=== PATIENT | male | born 1970 | race Caucasian/White ===

== ENCOUNTER 2025-03-28 07:14 | Inpatient (IN) ==
[2025-03-28] MEDS: SODIUM CHLORIDE 0.9% 1,000 ML IV SCH ×3 (07:30→11:36)
[2025-03-28 07:57] LABS: Hematocrit (blood only) 38.8 % (42.0-52.0); Hemoglobin 12.5 g/dl (14.0-18.0); Immature Granulocytes # (auto) 0.03 K/uL (0.01-0.20); Immature Granulocytes % (auto) 0.3 %; Mean Corpuscular Hemoglobin 28.9 pg (25.0-34.0); Mean Corpuscular Volume 89.8 fL (80.0-100.0); Platelet Count 325 K/uL (130-400); RDW Standard Deviation 41.1 fL (36.4-46.3); Red Blood Count 4.32 M/uL (4.70-6.10); White Blood Count 10.36 K/ul (4.8-10.8)
[2025-03-28 08:19] LABS: Alanine Aminotransferase 11.0 U/L (7-52); Albumin Globulin Ratio 1.3 (0.9-2); Albumin Level 4.1 gm/dl (3.4-5.0); Alkaline Phosphatase 80.0 U/L (34-104); Anion Gap 10.0 (3-11); Bilirubin,Total 0.5 mg/dl (0.2-1.0); Blood Urea Nitrogen 21.0 mg/dl (6-23); Calcium 9.0 mg/dl (8.6-10.3); Carbon Dioxide 26.0 mmol/L (21-32); Chloride 101.0 mmol/L (98-107); Creatinine Clr Calc Pharmacy 34.8 ml/min; Globulin 3.2 gm/dl (2.5-4.0); Glucose 146.0 mg/dl (70-99(Fasting)); Potassium 3.6 mmol/L (3.5-5.1); Sodium 137.0 mmol/L (136-145); Total Protein 7.3 gm/dl (6.0-8.3)
[2025-03-28 08:23] LABS: INR 1.1 (0.9-1.1); Prothrombin Time 11.2 Seconds (9.0-12.0)
[2025-03-28 08:35] LABS: Thyroid Stimulating Hormone 0.909 uIu/ml (0.300-4.500)
--- NOTE | 2025-03-28 08:42 | Emergency Department Note ---
Impression & Plan MARINA (acute kidney injury), Elbow pain, right, Hypotension ED Provider Note ED Provider Note NAME: FLOR SHEETS AGE:54 SEX: Male : 1970 ARRIVES VIA: Private vehicle INFORMANT: Patient ED PROVIDER(s): Naima Ray DO CHIEF COMPLAINT: Right elbow pain HPI: This is a 54-year-old male presents emergency department complaining of right elbow pain. Patient states it started about a week and a half ago and has been fairly constant since that time. He denies any trauma or any change in activity. He can point to 1 spot where he states all the pain is. He states when he stands up the pain seems worse and he feels it into his right shoulder and his right neck. He denies any prior similar episodes. Patient states he does have tramadol that is prescribed for chronic low back pain and he has been using those every morning as well. He denies taking any Tylenol or coming NSAIDs. He denies any other topical agents. He denies any prior injury to the right shoulder or right elbow. He denies any accompanying chest pain, shortness of breath, nausea or vomiting. He states when he stands up and has increased pain he also feels slightly dizzy. He denies any syncopal events. Patient was noted to be hypotensive in triage and I was notified and asked to come evaluate him urgently once he was placed in the room. While seated in the bed patient denied any complaints or concerns. When asked about his blood pressure he states his blood pressure typically fluctuates wildly anywhere from the 70s systolic up to the 200s systolic. He states he does use metoprolol daily. PAST MEDICAL HISTORY:See Below PAST SURGICAL HISTORY:See Below FAMILY HISTORY:See Below SOCIAL HISTORY:See Below HOME MEDICATIONS:See Below ALLERGIES:See Below VITALS:See Below PHYSICAL EXAMINATION: GENERAL: alert, well appearing, well nourished, no distress, non-toxic EYE EXAM: normal conjunctiva, PERRL and EOM's grossly intact OROPHARYNX: no exudate, no erythema, lips, buccal mucosa, and tongue normal and mucous membranes are moist NECK: supple, no nuchal rigidity, no adenopathy, non-tender, no pain with palpation along the right paraspinal region of the neck, FROM LUNGS: Clear to auscultation. Normal chest wall mechanics, no w/r/r HEART: no murmurs, S1 normal and S2 normal ABDOMEN: abdomen soft, non-tender, normo-active bowel sounds, no masses, no rebound or guarding. BACK: Back is symmetrical on inspection and there is no deformity, no midline tenderness, no CVA tenderness. SKIN: no rashes, petechiae, orbruising UPPER EXTREMITIES: upper extremities are grossly normal. FROM, nml pulses b/l. Mild pain with palpation over the lateral condyle and into the forearm extensors on the right, no joint effusions, no evidence of trauma, no reproducible pain with palpation of the more proximal upper extremity, humeral head, AC joint, clavicle, or scapula; equal sensation bilaterally LOWER EXTREMITIES: No pitting edema. FROM, nml pulses b/l. NEURO EXAM: Normal sensorium, cranial nerves II-XII grossly intact, normal speech, no facial droop,nogross weakness of arms, no gross weakness of legs. Gross sensation intact. No ataxia. Vital Signs: reviewed and remarkable Differential Diagnosis: Fracture, contusion, tendinitis, cervical radiculopathy, pneumonia, mass, brachial plexitis, pleural effusion, upper extremity DVT, as well as others were considered MEDICAL DECISION MAKING: This is a 54-year-old male presents the Emergency Department complaining of right upper extremity pain for the last week and a half. Patient noted to be significantly hypertensive at triage and was brought back to a room emergently and I was asked to see him. Patient started on IV fluids urgently after labs are drawn and sent and IV established. He was monitored telemetry, EKG and x- rays performed at bedside and interpreted by me. Patient denied any symptoms while seated at rest however he took 2 L of IV fluids for his blood pressure to stabilize and remain in had a low normal level. In that interim lab results showed significant elevation of his creatinine compared to prior. We did attempt to track down outpatient labs from his PCP however this was unsuccessful. Patient sent for CT of the abdomen and pelvis to rule out other obstructive or infectious pathology. I did discuss results with the patient at bedside. I suspect the upper extremity and neck pain are likely related to a cervical radiculopathy in light of his other ongoing back issues. Given hypotension and MARINA, we discussed further inpatient evaluation and he was in agreement. Case discussed with the hospitalist team for additional evaluation and management. Consultation(s): 1113: Discussed with Dr. Rivera, [place] hospitalist, for additional evaluation and mgmt. ER Treatment Provided: See below 0840: Patient updated on results thus far. He states he has previously had problems with his kidneys but doesn't know why. He states his PCP did blood work 1 month ago and he was told it was "good". Diagnostics Interpreted By Me: -ECG: Normal sinus at 95, normal axis, normal intervals, no acute ST/T wave changes -Cardiac Monitoring: An order was placed for continuous cardiac monitoring. The monitor shows a rate of 70 with normal sinus rhythm. -Laboratory studies: As stated above and show below. -Imaging studies: X-ray Chest: A single view study of the chest was reviewed and was negative for cardiomegaly, focal infiltrate, effusion, pulmonary edema, or wide mediastinum. xr elbow: no fx/dislocation Triage Nursing Note Reviewed Prior/Outside Records Reviewed Past Med/Surg History Problem List (Updated 03/28/25 @ 11:28 by Naima Ray DO) Hypotension (Acute) MARINA (acute kidney injury) (Acute) Elbow pain, right (Acute) Urinary frequency Benign hypertension (Acute 07/15/12) Social History Smoking Status: Never smoker Hx Alcohol Use: No Hx Substance Use: No Preferred Language: Mosotho Communication Ability: Effective Flight Follower Required: No Beliefs That Will Affect Care: None Feels Safe at Home: Yes Safety Concerns: Feels Safe At This Time Assistive Devices: None Allergies Allergies Allergy/AdvReac Type Severity Reaction Status Date / Time No Known Allergies Allergy Unverified 05/27/19 14:48 Home Meds Home Medications Medication Instructions Recorded Confirmed amitriptyline 25 mg tablet 25 mg PO HS 02/26/21 03/28/25 buspirone 15 mg tablet 15 mg PO TID 02/26/21 03/28/25 cyclobenzaprine 10 mg tablet 10 mg PO DAILY PRN Muscle Spasm 02/26/21 03/28/25 ergocalciferol (vitamin D2) 1,250 1,250 mcg PO WK 02/26/21 03/28/25 mcg (50,000 unit) capsule escitalopram oxalate 20 mg tablet 20 mg PO DAILY 02/26/21 03/28/25 gabapentin 800 mg tablet 800 mg PO TID 02/26/21 03/28/25 hydroxyzine HCl 10 mg tablet 10 mg PO HS 02/26/21 03/28/25 lisinopril 20 mg tablet 20 mg PO DAILY 02/26/21 03/28/25 metoprolol tartrate 25 mg tablet 25 mg PO BID 02/26/21 03/28/25 tamsulosin 0.4 mg capsule 0.8 mg PO HS 02/26/21 03/28/25 atorvastatin 40 mg tablet 40 mg PO HS 03/28/25 03/28/25 omeprazole 40 mg capsule,delayed 40 mg PO DAILY 03/28/25 03/28/25 release tramadol 50 mg tablet 50 mg PO HS 03/28/25 03/28/25 Results & Data (ED) Vital Signs Vital Signs - 24 hr 03/28/25 07:16 03/28/25 07:30 03/28/25 07:37 Temperature 36.6 C Temperature Source Temporal Artery Scan Pulse Rate 110 H 102 H Pulse Rate from SpO2 Sensor Respiratory Rate 18 15 Respiratory Effort / Characteristics Non-Labored Spontaneous Respiratory Depth Normal Respiratory Pattern Regular Blood Pressure 89/59 L 73/60 L 85/56 L Blood Pressure Mean 69 62 58 Pulse Oximetry 96 Oxygen Delivery Method Room Air Sepsis Recent Fever Within 48 Hours No Sepsis New/Unexplained Change in Mental Status N/A Sepsis Action Taken by Nursing Adv Provider Notified 03/28/25 08:00 03/28/25 08:19 03/28/25 09:00 Temperature Temperature Source Pulse Rate 92 H 88 Pulse Rate from SpO2 Sensor Respiratory Rate 15 Respiratory Effort / Characteristics Respiratory Depth Respiratory Pattern Blood Pressure 80/53 L 120/71 Blood Pressure Mean 64 89 Pulse Oximetry Oxygen Delivery Method Room Air Sepsis Recent Fever Within 48 Hours Sepsis New/Unexplained Change in Mental Status Sepsis Action Taken by Nursing 03/28/25 09:00 03/28/25 09:18 03/28/25 09:38 Temperature Temperature Source Pulse Rate 99 H 81 79 Pulse Rate from SpO2 Sensor 97 H 80 82 Respiratory Rate 16 15 23 Respiratory Effort / Characteristics Respiratory Depth Respiratory Pattern Blood Pressure Blood Pressure Mean Pulse Oximetry 100 99 Oxygen Delivery Method Sepsis Recent Fever Within 48 Hours Sepsis New/Unexplained Change in Mental Status Sepsis Action Taken by Nursing 03/28/25 09:41 03/28/25 09:56 03/28/25 09:59 Temperature Temperature Source Pulse Rate 75 75 72 Pulse Rate from SpO2 Sensor 75 75 72 Respiratory Rate 16 15 17 Respiratory Effort / Characteristics Respiratory Depth Respiratory Pattern Blood Pressure Blood Pressure Mean Pulse Oximetry 96 95 97 Oxygen Delivery Method Room Air Sepsis Recent Fever Within 48 Hours Sepsis New/Unexplained Change in Mental Status Sepsis Action Taken by Nursing 03/28/25 10:01 03/28/25 10:11 03/28/25 10:23 Temperature Temperature Source Pulse Rate 77 76 Pulse Rate from SpO2 Sensor 77 75 Respiratory Rate 19 19 Respiratory Effort / Characteristics Respiratory Depth Respiratory Pattern Blood Pressure 100/63 Blood Pressure Mean 84 Pulse Oximetry 96 96 Oxygen Delivery Method Sepsis Recent Fever Within 48 Hours Sepsis New/Unexplained Change in Mental Status Sepsis Action Taken by Nursing 03/28/25 10:30 03/28/25 10:32 03/28/25 10:35 Temperature Temperature Source Pulse Rate 85 77 Pulse Rate from SpO2 Sensor 85 78 Respiratory Rate 20 17 Respiratory Effort / Characteristics Respiratory Depth Respiratory Pattern Blood Pressure 108/68 Blood Pressure Mean 83 Pulse Oximetry 98 97 Oxygen Delivery Method Sepsis Recent Fever Within 48 Hours Sepsis New/Unexplained Change in Mental Status Sepsis Action Taken by Nursing 03/28/25 11:30 03/28/25 11:30 03/28/25 11:32 Temperature Temperature Source Pulse Rate 73 Pulse Rate from SpO2 Sensor 74 Respiratory Rate 17 Respiratory Effort / Characteristics Respiratory Depth Respiratory Pattern Blood Pressure 127/73 127/73 Blood Pressure Mean 82 82 Pulse Oximetry 99 Oxygen Delivery Method Sepsis Recent Fever Within 48 Hours Sepsis New/Unexplained Change in Mental Status Sepsis Action Taken by Nursing Laboratory Data 03/28/25 07:29 03/28/25 07:29 Lab Results 03/28/25 03/28/25 Range/Units 07:29 11:25 WBC 10.36 (4.8-10.8) K/ul RBC 4.32 L (4.70-6.10) M/uL Hgb 12.5 L (14.0-18.0) g/dl Hct 38.8 L (42.0-52.0) % MCV 89.8 (80.0-100.0) fL MCH 28.9 (25.0-34.0) pg MCHC 32.2 (32.0-36.0) g/dL RDW Std Deviation 41.1 (36.4-46.3) fL RDW Coeff of Leida 12.4 (11.5-14.5) % Plt Count 325 (130-400) K/uL MPV 9.4 (9.4-12.4) fL Immature Gran % (Auto) 0.3 % Neut % (Auto) 81.7 % Lymph % (Auto) 10.3 % [place] % (Auto) 6.3 % Eos % (Auto) 0.8 % Baso % (Auto) 0.6 % Neut # (Auto) 8.47 H (1.40-6.50) K/uL Lymph # (Auto) 1.07 L (1.20-3.40) K/uL [place] # (Auto) 0.65 H (0.11-0.59) K/uL Eos # (Auto) 0.08 (0.00-0.50) K/uL Baso # (Auto) 0.06 (0.00-0.20) K/uL Immature Gran # (Auto) 0.03 (0.01-0.20) K/uL PT 11.2 (9.0-12.0) Seconds INR 1.1 (0.9-1.1) Sodium 137 (136-145) mmol/L Potassium 3.6 (3.5-5.1) mmol/L Chloride 101 (98-107) mmol/L Carbon Dioxide 26 (21-32) mmol/L Anion Gap 10 (3-11) BUN 21 (6-23) mg/dl Creatinine 2.48 H (0.6-1.4) mg/dl Est Cr Clr Drug Dosing 34.8 ml/min eGFR 29.89 BUN/Creatinine Ratio 8.5 L (10-20) Glucose 146 H (70-99(Fasting)) mg/dl Uric Acid 6.0 (2.6-7.2) mg/dl Calcium 9.0 (8.6-10.3) mg/dl Magnesium 1.7 (1.7-2.4) mg/dl Total Bilirubin 0.5 (0.2-1.0) mg/dl AST 18 (13-39) U/L ALT 11 (7-52) U/L Alkaline Phosphatase 80 (34-104) U/L Total Creatine Kinase 216 (30-223) U/L Troponin I High Sens 3.1 (0-20) pg/ml Total Protein 7.3 (6.0-8.3) gm/dl Albumin 4.1 (3.4-5.0) gm/dl Globulin 3.2 (2.5-4.0) gm/dl Albumin/Globulin Ratio 1.3 (0.9-2) Lipase 126 H (11-82) U/L TSH 0.909 (0.300-4.500) uIu/ml Urine Color Yellow Urine Appearance Clear (Clear) Urine pH 5.5 (4.5-7.5) Ur Specific [employer] 1.006 (1.000-1.030) Urine Protein Negative (Negative) Urine Glucose (UA) Negative (Negative) Urine Ketones Negative (Negative) Urine Blood Negative (Negative) Urine Nitrite Negative (Negative) Urine Bilirubin Negative (Negative) Urine Urobilinogen Negative (Negative) Ur Leukocyte Esterase Negative (Negative) Urine Comment Urine Opiates Screen Neg (Neg) Ur Methadone, Qual Neg (Neg) Urine Fentanyl Screen Neg (Neg) Urine Barbiturates Neg (Neg) Ur Phencyclidine (PCP) Neg (Neg) U Amphetamin/Meth Scrn Neg (Neg) MDMA (Ecstasy) Screen Neg (Neg) U Benzodiazepines Scrn Neg (Neg) Ur Cocaine Metabolite Neg (Neg) U Marijuana (THC) Screen Pos H (Neg) Administered Medications Lactated Ringer's (Lr) 1,000 mls @ 125 mls/hr IV .Q8H NGUYEN Stop: 03/31/25 14:12 Last Admin: 03/28/25 14:30 Dose: 125 mls/hr Documented By: magalys Discontinued Medications Sodium Chloride (Nss) 1,000 mls @ 999 mls/hr IV .Q1H1M NGUYEN Stop: 03/28/25 09:43 Last Infusion: 03/28/25 08:44 Dose: Infused Documented By: Admin: 03/28/25 07:30 Dose: 999 mls/hr Documented By: LEORA Sodium Chloride (Nss) 1,000 mls @ 200 mls/hr IV .Q5H NGUYEN Stop: 03/28/25 13:44 Last Infusion: 03/28/25 10:34 Dose: Infused Documented By: Admin: 03/28/25 08:46 Dose: 200 mls/hr Documented By: LEORA Sodium Chloride (Nss) 1,000 mls @ 125 mls/hr IV .Q8H NGUYEN Stop: 03/31/25 10:29 Last Infusion: 03/28/25 14:50 Dose: Infused Documented By: Infusion: 03/28/25 14:17 Dose: 0 mls/hr Documented By: [email or web address] Admin: 03/28/25 11:36 Dose: 125 mls/hr Documented By: LEORA Imaging Data Radiologist's Impression: Cervical Spine X-Ray 03/28/25 07:41 XR cervical spine 2 or 3V CLINICAL HISTORY: neck pain COMPARISON STUDY: None FINDINGS: The prevertebral soft tissues are normal. No fractures or subluxations are visualized. There are degenerative changes with anterior posterior osteophytes at the C5-C6 level. Degenerative changes less pronounced also present at the C7-T1 level. IMPRESSION: 1. No fractures or subluxations identified 2. Degenerative changes most pronounced at the C5-6 level with anterior and posterior osteophytes. ACT 112: Negative or not required by law. Electronically signed by: Kobe Wallis M.D. 03/28/2025 8:59 AM Chest X-Ray 03/28/25 07:41 XR chest 1V not portable CLINICAL HISTORY: hypotension right arm pain radiating into the neck. COMPARISON STUDY: No previous studies for comparison. FINDINGS: The cardiac and mediastinal contours are normal. There is no focal pulmonary consolidation. There is no failure. There are no pleural effusions. Overlying cardiac leads are evident. There is an old left-sided rib deformity. IMPRESSION: No active disease in the chest. ACT 112: Negative or not required by law. Electronically signed by: Kobe Wallis M.D. 03/28/2025 8:57 AM Elbow X-Ray 03/28/25 07:41 XR elbow RT min 3V routine HISTORY: 54 years-old Male pain at lateral epicondyle COMPARISON: None TECHNIQUE: 3 views of the right elbow FINDINGS: No acute fracture, dislocation or large joint effusion. Mild dorsal soft tissue swelling. Degenerative marginal spurring/enthesophyte of the lateral epicondyle. IMPRESSION: No acute fracture or dislocation. ACT 112: Negative or not required by law. The above report was generated using voice recognition software. It may contain grammatical, syntax or spelling errors. Electronically signed by: Cj Valenzuela M.D. 03/28/2025 9:05 AM Abdomen/Pelvis CT 03/28/25 08:[address] WITHOUT CONTRAST CT DOSE: 870.32 mGy.cm HISTORY: Acute kidney injury [place] TECHNIQUE: Multiaxial CT images of the abdomen and pelvis were performed without contrast. A dose lowering technique was utilized adhering to the principles of ALARA. COMPARISON STUDY: 02/26/2021 FINDINGS: Clear lung bases. No pneumatosis or pneumoperitoneum. Unremarkable unenhanced spleen, pancreas, gallbladder, adrenal glands and liver. Unremarkable kidneys without hydronephrosis. 1.3 cm cyst of the mid to inferior pole right kidney. Mild urinary bladder wall thickening with partial distention. Borderline enlarged prostate. Atherosclerosis of the aorta without aneurysm. No lymphadenopathy. No bowel obstruction or bowel wall thickening. Colonic diverticulosis without acute diverticulitis. Normal appendix. Degenerative and postoperative changes of the spine. Chronic right-sided L4 pars defect with grade 1 anterolisthesis at this interspace. There is at least moderate central canal stenosis and right foraminal narrowing at this level. Subcentimeter sclerotic foci of the pelvis and proximal femora suggestive of probable bone islands. IMPRESSION: 1. No acute intra-abdominal or intrapelvic abnormality. 2. Unremarkable kidneys without hydronephrosis. 3. Colonic diverticulosis without acute diverticulitis. ACT 112: Negative or not required by law. The above report was generated using voice recognition software. It may contain grammatical, syntax or spelling errors. Electronically signed by: Cj Valenzuela M.D. 03/28/2025 9:30 AM Discharge Plan Visit Data Chief Complaint: Elbow Injury/Pain Stated Complaint: RT ELBOW PAIN ED Provider: Naima Ray Discharge Problem: MARINA (acute kidney injury), Elbow pain, right, Hypotension Patient Disposition: Being Evaluated by Hospitalist Condition: Fair Discharge Instructions Interventions: ED Discharge Assessment Last Done: 03/28/25 14:13
--- NOTE | 2025-03-28 08:59 | XRay Report ---
XR chest 1V not portable CLINICAL HISTORY: hypotension right arm pain radiating into the neck. COMPARISON STUDY: No previous studies for comparison. FINDINGS: The cardiac and mediastinal contours are normal. There is no focal pulmonary consolidation. There is no failure. There are no pleural effusions. Overlying cardiac leads are evident. There is a n old left-sided rib deformity. IMPRESSION: No active disease in the chest. ACT 112: Negative or not required by law. Electronically signed by: Kobe Wallis M.D. 03/28/2025 8:57 AM
--- NOTE | 2025-03-28 09:00 | XRay Report ---
XR cervical spine 2 or 3V CLINICAL HISTORY: neck pain COMPARISON STUDY: None FINDINGS: The prevertebral soft tissues are normal. No fractures or subluxations are visualized. Ther e are degenerative changes with anterior posterior osteophytes at the C5-C6 level. Degenerative angel es less pronounced also present at the C7-T1 level. IMPRESSION: 1. No fractures or subluxations identified 2. Degenerative changes most pronounced at the C5-6 level with anterior and posterior osteophytes. ACT 112: Negative or not required by law. Electronically signed by: Kobe Wallis M.D. 03/28/2025 8:59 AM
--- NOTE | 2025-03-28 09:06 | XRay Report ---
XR elbow RT min 3V routine HISTORY: 54 years-old Male pain at lateral epicondyle COMPARISON: None TECHNIQUE: 3 views of the right elbow FINDINGS: No acute fracture, dislocation or large joint effusion. Mild dorsal soft tissue swelling. Degenerativ e marginal spurring/enthesophyte of the lateral epicondyle. IMPRESSION: No acute fracture or dislocation. ACT 112: Negative or not required by law. The above report was generated using voice recognition software. It may contain grammatical, syntax o r spelling errors. Electronically signed by: Cj Valenzuela M.D. 03/28/2025 9:05 AM
[2025-03-28 09:25] LABS: Lipase 126.0 U/L (11-82); Magnesium 1.7 mg/dl (1.7-2.4); Uric Acid 6.0 mg/dl (2.6-7.2)
--- NOTE | 2025-03-28 09:32 | CT Scan Report ---
ABDOMEN AND PELVIS CT WITHOUT CONTRAST CT DOSE: 870.32 mGy.cm HISTORY: Acute kidney injury [place] TECHNIQUE: Multiaxial CT images of the abdomen and pelvis were performed without contrast. A dose lo wering technique was utilized adhering to the principles of ALARA. COMPARISON STUDY: 02/26/2021 FINDINGS: Clear lung bases. No pneumatosis or pneumoperitoneum. Unremarkable unenhanced spleen, pancr eas, gallbladder, adrenal glands and liver. Unremarkable kidneys without hydronephrosis. 1.3 cm cyst of the mid to inferior pole right kidney. Mild urinary bladder wall thickening with partial distentio n. Borderline enlarged prostate. Atherosclerosis of the aorta without aneurysm. No lymphadenopathy. No bowel obstruction or bowel wall thickening. Colonic diverticulosis without acute diverticulitis. N ormal appendix. Degenerative and postoperative changes of the spine. Chronic right-sided L4 pars defe ct with grade 1 anterolisthesis at this interspace. There is at least moderate central canal stenosis and right foraminal narrowing at this level. Subcentimeter sclerotic foci of the pelvis and proximal femora suggestive of probable bone islands. IMPRESSION: 1. No acute intra-abdominal or intrapelvic abnormality. 2. Unremarkable kidneys without hydronephrosis. 3. Colonic diverticulosis without acute diverticulitis. ACT 112: Negative or not required by law. The above report was generated using voice recognition software. It may contain grammatical, syntax o r spelling errors. Electronically signed by: Cj Valenzuela M.D. 03/28/2025 9:30 AM
--- NOTE | 2025-03-28 10:40 | History & Physical Report ---
Date of Service March 28, 2025 Assessment & Plan (1) MARINA (acute kidney injury): (2) Hypotension: (3) Elbow pain, right: (4) Urinary frequency: (5) Benign hypertension: Plan Possible MARINA vs. CKD in setting of hypotension UA unremarkable No post obstructive cause on imaging Stop anti-hypertensives IV fluids overnight Repeat BMP in AM Right C5 radiculopathy pain MRI cervical spine to assess for severe stenosis given also some concern with his gait but main concern from patient is C5 distribution pain Normocytic anemia B12, folate, ferritin, Fe transferrin sats with AM labs BPH Continue tamsulosin HTN Possibly white coat hypertension and therefore over treated, holding metoprolol and lisinopril as above GERD Well controlled, switch omeprazole for pantoprazole per hospital formulary Bilateral leg pain Continue gabapentin, tramadol Depression Continue Lexapro, hydroxyzine, buspirone VTE Prophylaxis - low risk, encourage ambulation Disposition - admit to med/surg Admission and Anticipated Discharge Date Admission Date: March 28, 2025 History of Present Illness Chief Complaint: Neck pressure, lightheadedness Primary Care Provider: Rich Santoyo MD Chandan Pace is a 54 year old male who presents to the ER with initial elbow pain per ER provider although on discussion with me he reports coming to the ER for dizziness/lightheadedness with neck pain. He reports feeling well yesterday doing yard work, he woke up feeling fine but his symptoms started today when he got to work. 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 He notes eating and drinking normally. Did not take his medications today or yesterday as he forgot to take them. He describes the pain in his neck as more of a mild pressure in the back of both sides of his neck. He does not feels dehydrated. No fever, chills, urinary, respiratory or gastrointestinal symptoms. He reports having lower back surgery and takes gabapentin for ongoing radiculopathy pains. He has trouble sleeping due to these pains and also takes tramadol at night with amitriptyline, hydroxyzine and Flexeril. He uses omprazole for reflux which is well controlled. He has anxiety and depression controlled on Lexapro and Buspar that he takes regularly. He notes atorvastatin was recently increased due to high cholesterol but no other recent changes to his medications and his anti-hypertensives have not recently changed. Pain in his elbow is new and he currently still has this. Appears to originate in his shoulder and shoot down his arm. He has not had this pain previously. He is a non-smoker. No alcohol. Smokes a little marijuana - no nausea or vomiting associated with this. No illicit substances. Allergies Allergy/AdvReac Type Severity Reaction Status Date / Time No Known Allergies Allergy Unverified 05/27/19 14:48 Home Medications Medication Instructions Recorded Confirmed Type amitriptyline 25 mg tablet 25 mg PO HS 02/26/21 03/28/25 History buspirone 15 mg tablet 15 mg PO TID 02/26/21 03/28/25 History cyclobenzaprine 10 mg tablet 10 mg PO DAILY PRN Muscle Spasm 02/26/21 03/28/25 History ergocalciferol (vitamin D2) 1,250 1,250 mcg PO WK 02/26/21 03/28/25 History mcg (50,000 unit) capsule escitalopram oxalate 20 mg tablet 20 mg PO DAILY 02/26/21 03/28/25 History gabapentin 800 mg tablet 800 mg PO TID 02/26/21 03/28/25 History hydroxyzine HCl 10 mg tablet 10 mg PO HS 02/26/21 03/28/25 History lisinopril 20 mg tablet 20 mg PO DAILY 02/26/21 03/28/25 History metoprolol tartrate 25 mg tablet 25 mg PO BID 02/26/21 03/28/25 History tamsulosin 0.4 mg capsule 0.8 mg PO HS 02/26/21 03/28/25 History atorvastatin 40 mg tablet 40 mg PO HS 03/28/25 03/28/25 History omeprazole 40 mg capsule,delayed 40 mg PO DAILY 03/28/25 03/28/25 History release tramadol 50 mg tablet 50 mg PO HS 03/28/25 03/28/25 History Past Med/Surg History Problem List (Updated 03/28/25 @ 11:28 by Naima Ray DO) Hypotension (Acute) MARINA (acute kidney injury) (Acute) Elbow pain, right (Acute) Urinary frequency Benign hypertension (Acute 07/15/12) Social History Smoking Status: Never smoker Hx Alcohol Use: No Hx Substance Use: No Preferred Language: Serbian Communication Ability: Effective Personnel Security Assistant Required: No Beliefs That Will Affect Care: None Feels Safe at Home: Yes Safety Concerns: Feels Safe At This Time Assistive Devices: None Review of Systems Review of Systems: All systems reviewed & are unremarkable except as noted in HPI & below Physical Exam Constitutional: WD/WN, vitals as above Respiratory: normal respiratory effort, lungs clear to auscultation Cardiovascular: RRR, no murmur, no edema Gastrointestinal (Abdomen): normal bowel sounds, soft, nontender, no hepatosplenomegaly Musculoskeletal: no cyanosis or clubbing, extremities motor strength 5/5 Neurologic: moves all extremities and awake; no focal motor deficits and not confused Speech / Cognition: normal speech Motor/Sensory: + sensory deficit (right C5 distribution) Psychiatric: A+Ox3, euthymic affect Results & Data Results & Data Vital Signs (Past 12 Hours) Vital Signs Temp Pulse Resp BP Pulse Ox O2 Del Method 03/28/25 10:01 100/63 03/28/25 09:59 72 17 97 Room Air 03/28/25 09:56 75 15 95 03/28/25 09:41 75 16 96 03/28/25 09:38 79 23 03/28/25 09:18 81 15 99 03/28/25 09:00 99 H 16 100 03/28/25 09:00 120/71 03/28/25 08:19 88 03/28/25 08:00 92 H 15 80/53 L Room Air 03/28/25 07:37 102 H 15 85/56 L 03/28/25 07:30 73/60 L 03/28/25 07:16 36.6 C 110 H 18 89/59 L 96 Room Air Laboratory Results Abnormal lab results 03/28/25 Range/Units 07:29 RBC 4.32 L (4.70-6.10) M/uL Hgb 12.5 L (14.0-18.0) g/dl Hct 38.8 L (42.0-52.0) % Neut # (Auto) 8.47 H (1.40-6.50) K/uL Lymph # (Auto) 1.07 L (1.20-3.40) K/uL [place] # (Auto) 0.65 H (0.11-0.59) K/uL Creatinine 2.48 H (0.6-1.4) mg/dl BUN/Creatinine Ratio 8.5 L (10-20) Glucose 146 H (70-99(Fasting)) mg/dl Lipase 126 H (11-82) U/L Diagnostic Findings XR cervical spine 2 or 3V CLINICAL HISTORY: neck pain COMPARISON STUDY: None FINDINGS: The prevertebral soft tissues are normal. No fractures or subluxations are visualized. There are degenerative changes with anterior posterior osteophytes at the C5-C6 level. Degenerative changes less pronounced also present at the C7-T1 level. IMPRESSION: 1. No fractures or subluxations identified 2. Degenerative changes most pronounced at the C5-6 level with anterior and posterior osteophytes. XR elbow RT min 3V routine HISTORY: 54 years-old Male pain at lateral epicondyle COMPARISON: None TECHNIQUE: 3 views of the right elbow FINDINGS: No acute fracture, dislocation or large joint effusion. Mild dorsal soft tissue swelling. Degenerative marginal spurring/enthesophyte of the lateral epicondyle. IMPRESSION: No acute fracture or dislocation. XR chest 1V not portable CLINICAL HISTORY: hypotension right arm pain radiating into the neck. COMPARISON STUDY: No previous studies for comparison. FINDINGS: The cardiac and mediastinal contours are normal. There is no focal p ulmonary consolidation. There is no failure. There are no pleural effusions. Overlying cardiac leads are evident. There is an old left-sided rib deformity. IMPRESSION: No active disease in the chest. ABDOMEN AND PELVIS CT WITHOUT CONTRAST CT DOSE: 870.32 mGy.cm HISTORY: Acute kidney injury new mar[place] TECHNIQUE: Multiaxial CT images of the abdomen and pelvis were performed without contrast. A dose lowering technique was utilized adhering to the principles of ALARA. COMPARISON STUDY: 02/26/2021 FINDINGS: Clear lung bases. No pneumatosis or pneumoperitoneum. Unremarkable un enhanced spleen, pancreas, gallbladder, adrenal glands and liver. Unremarkable kidneys without hydronephrosis. 1.3 cm cyst of the mid to inferior pole right kidney. Mild urinary bladder wall thickening with partial distention. Borderline enlarged prostate. Atherosclerosis of the aorta without aneurysm. No lymphadenopathy. No bowel obstruction or bowel wall thickening. Colonic diverticulosis without acute diverticulitis. Normal appendix. Degenerative and postoperative changes of the spine. Chronic right-sided L4 pars defect with grade 1 anterolisthesis at this interspace. There is at least moderate central canal stenosis and right foraminal narrowing at this level. Subcentimeter sclerotic foci of the pelvis and proximal femora suggestive of probable bone islands. IMPRESSION: 1. No acute intra-abdominal or intrapelvic abnormality. 2. Unremarkable kidneys without hydronephrosis. 3. Colonic diverticulosis without acute diverticulitis. Medications Administered ER Medications Given: Normal saline 1000ml bolus Normal saline 1L @ 200ml/hr ECG Rate (beats per minute): 95 Rhythm: normal sinus Findings: no acute ischemic change Comparison ECG Date: no prior available Code Status & VTE Plan Code Status Full VTE Prophylaxis Plan VTE Prophylaxis will be ordered: No PG Care Time/CCT Total # of Minutes Spent Total Time Spent with Patient: Total time spent is greater than 50% in coordination of care (as documented) at patient's floor/unit and/or counseling patient: Coding Level of Care Code 94281 INT INP/OBS CARE 375MIN Diagnoses MARINA (acute kidney injury) N17.9 Hypotension I95.9 Elbow pain, right M25.521 Urinary frequency R35.0 Benign hypertension I10
[2025-03-28 11:19] LABS: Creatine Kinase 216.0 U/L (30-223)
[2025-03-28 12:02] LABS: Appearance Urine Clear (Clear); Glucose Urine UA Negative (Negative)
[2025-03-28 13:10] LABS: Amphetamines+Metham, Urine Neg (Neg); MDMA (Ecstacy), Urine Neg (Neg); Marijuana, Urine Pos (Neg)
[2025-03-28] MEDS: LACTATED RINGER'S 1,000 ML IV SCH (14:30)
[2025-03-28] MEDS: busPIRone 15 MG TAB PO STA (17:30)
[2025-03-28] MEDS: ESCITALOPRAM OXALATE 20 MG TAB PO STA (17:30)
[2025-03-28] MEDS: GABAPENTIN 800 MG TAB PO STA (17:30)
[2025-03-28] MEDS: CYCLOBENZAPRINE HCL 10 MG TAB PO PRN (18:34)
[2025-03-28] MEDS: ACETAMINOPHEN 325 MG TAB PO PRN (18:34)
--- NOTE | 2025-03-28 18:34 | Magnetic Resonance Report ---
Exam(s): MRI C SPINE EXAM: MR Cervical Spine Without Intravenous Contrast CLINICAL HISTORY: Reason for exam: right sided cervical radiculopathy with ataxia. OTHER: Other Notes: right side neck pain right arm numbness tingling no injury TECHNIQUE: Magnetic resonance images of the cervical spine without intravenous contrast in multiple planes. COMPARISON: No relevant prior studies available. FINDINGS: Vertebrae: Unremarkable. No acute fracture. Spinal cord: Unremarkable. Normal signal. Soft tissues: Unremarkable. DISCS/SPINAL CANAL/NEURAL FORAMINA: C2-C3: Unremarkable. No significant disc disease. No stenosis. C3-C4: C3-4 disc osteophyte. Mild canal stenosis. Severe left and moderate right foraminal stenosis. C4-C5: C4-5: No disc bulge. Severe foraminal stenosis on the left. Mild stenosis on the right. C5-C6: C5-6 disc osteophyte. Mild canal stenosis. Severe right and mild left foraminal stenosis. C6-C7: Unremarkable. No significant disc disease. No stenosis. C7-T1: C7-T1 no canal stenosis or disc bulge. Moderate bilateral foraminal stenosis. IMPRESSION: Degenerative spondylosis with scattered bilateral foraminal stenosis as described. Electronically signed by: Dario Lara MD 03/28/25 18:33 PM
[2025-03-28] MEDS: TAMSULOSIN HCL 0.4 MG CAP PO SCH (21:59)
[2025-03-28] MEDS: busPIRone 15 MG TAB PO SCH (21:59)
[2025-03-28] MEDS: GABAPENTIN 800 MG TAB PO SCH (21:59)
[2025-03-28] MEDS: ATORVASTATIN 40 MG TAB PO SCH (21:59)
[2025-03-28] MEDS: AMITRIPTYLINE HCL 25 MG TAB PO SCH (21:59)
--- NOTE | 2025-03-29 06:07 | Electrocardiogram Report ---
Test Reason : Blood Pressure : */* mmHG Vent. Rate : 95 BPM Atrial Rate : 95 BPM P-R Int : 142 ms QRS Dur : 78 ms QT Int : 338 ms P-R-T Axes : 53 33 34 degrees QTcB Int : 424 ms Normal sinus rhythm Possible Left atrial enlargement Borderline ECG No previous ECGs available Confirmed by Shemar Baig ([id number]) on 03/29/2025 6:07:10 AM Referred By: REFERRED SELF Confirmed By: Shemar Baig
[2025-03-29 07:31] LABS: Hematocrit (blood only) 35.1 % (42.0-52.0); Hemoglobin 11.4 g/dl (14.0-18.0); Mean Corpuscular Hemoglobin 29.2 pg (25.0-34.0); Mean Corpuscular Volume 89.8 fL (80.0-100.0); Platelet Count 215 K/uL (130-400); RDW Standard Deviation 40.8 fL (36.4-46.3); Red Blood Count 3.91 M/uL (4.70-6.10); White Blood Count 5.49 K/ul (4.8-10.8)
[2025-03-29 07:47] LABS: Anion Gap 5.0 (3-11); Blood Urea Nitrogen 15.0 mg/dl (6-23); Calcium 8.7 mg/dl (8.6-10.3); Carbon Dioxide 28.0 mmol/L (21-32); Chloride 108.0 mmol/L (98-107); Creatinine Clr Calc Pharmacy 59.8 ml/min; Glucose 135.0 mg/dl (70-99(Fasting)); Iron 56.0 mcg/dl (35-175); Potassium 4.1 mmol/L (3.5-5.1); Sodium 141.0 mmol/L (136-145); Total Iron Binding Cap Calc 340.0 mcg/dl (250-450); Transferrin 243.0 mg/dl (200-360); Transferrin (FE) Percent Satur 16.0 % (20-50)
[2025-03-29] MEDS: ESCITALOPRAM OXALATE 20 MG TAB PO SCH (07:51)
[2025-03-29 08:07] LABS: Ferritin 128.1 ng/ml (8-388)
[2025-03-29 08:14] LABS: Folate (Folic Acid),Ser orPlas 14.21 ng/ml (>5.38)
[2025-03-29 08:15] LABS: Vitamin B12 380.0 pg/ml (180-914)
--- NOTE | 2025-03-29 11:19 | Discharge Summary ---
Discharge Summary Date of Service March 29, 2025 Principal Dx & Hospital Course #1 = Principal Diagnosis (1) MARINA (acute kidney injury): (2) Hypotension: (3) Elbow pain, right: (4) Urinary frequency: (5) Benign hypertension: Plan Chandan Pace is a 54 year old male observed at [facility] due to lightheadedness, elbow pain and neck pressure. He was diagnosed with acute kidney injury and hypotension due to anti-hypertensives and dehydration. Post obstructive cause ruled out on This resolved overnight with intravenous fluids and holding his anti-hypertensives. His blood pressure has been stable overnight not orthostatic in the morning. He is medically stable for discharge. Due to right sided C6 distribution and neck pain he underwent MRI cervical spine that showed multiple areas of foraminal stenosis including severe foraminal stenosis of the exiting C6 nerve root on the right side as the likely cause of his pain. This resolved overnight with improvement in his blood pressure and no specific treatment required for this but recommend he follows up with his primary care provider. His gabapentin and amitriptyline should also help with this neuropathic pain which he will continue. He was also noticed to have mild anemia. Further workup for this revealed a mildly low iron levels and B12 level <400 therefore recommend supplementation for this as prescribed. Notes For Next Care Provider Recommend he follows up with his PCP with repeat BMP in 1-2 weeks. Creatinine improved from 2.48 on admission to 1.44. Urine analysis was reassuringly normal. Follow up with PCP for mild iron deficient anemia - make sure colon cancer screening up to date Medication Changes From Visit Hold metoprolol and lisinopril due to hypotension causing MARINA Start supplementation with B12 and iron Admission HPI Per Admitting Provider Chandan Pace is a 54 year old male who presents to the ER with initial elbow pain per ER provider although on discussion with me he reports coming to the ER for dizziness/lightheadedness with neck pain. He reports feeling well yesterday doing yard work, he woke up feeling fine but his symptoms started today when he got to work. 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 He notes eating and drinking normally. Did not take his medications today or yesterday as he forgot to take them. He describes the pain in his neck as more of a mild pressure in t he back of both sides of his neck. He does not feels dehydrated. No fever, chills, urinary, respiratory or gastrointestinal symptoms. He reports having lower back surgery and takes gabapentin for ongoing radiculopathy pains. He has trouble sleeping due to these pains and also takes tramadol at night with amitriptyline, hydroxyzine and Flexeril. He uses omprazole for reflux which is well controlled. He has anxiety and depression controlled on Lexapro and Buspar that he takes regularly. He notes atorvastatin was recently increased due to high cholesterol but no other recent changes to his medications and his anti-hypertensives have not recently changed. Pain in his elbow is new and he currently still has this. Appears to originate in his shoulder and shoot down his arm. He has not had this pain previously. He is a non-smoker. No alcohol. Smokes a little marijuana - no nausea or vomiting associated with this. No illicit substances. Discharge Exam Constitutional WD/WN, vitals as above Respiratory normal respiratory effort, lungs clear to auscultation Cardiovascular RRR, no murmur, no edema Discharge Plan Discharge Items Patient Disposition: Home - Self-Care Reason For Visit: MARINA, HYPOTENSION Discharge Diagnosis: Acute kidney injury - resolved on discharge Low blood pressure Right sided C6 cervical radiculopathy Condition on Discharge: Fair Activity: Resume your previous activity Non-emergency contact: Primary Care Provider Call non-emergency contact if: you have any medication questions and your sympt oms worsen Follow-up/Referrals: Rich Santoyo MD [Primary Care Provider] - 04/05/25 11:00 am Diet: Regular Addtl Attending Provider Instructions: You were observed at [facility] due to lightheadedness, elbow pain and neck pressure. You were diagnosed with acute kidney injury and low blood pressure due to anti-hypertensives. This resolved overnight with intravenous fluids (suggestive of dehydration) and holding your blood pressure medications. Your blood pressure has been stable overnight and you are now medically stable for discharge. Please follow up with your primary care provider on discharge for repeat kidney test (BMP). Creatinine improved from 2.48 on admission to 1.44. Urine analysis was reassuringly normal. Due to C6 distribution pain on your right side you underwent MRI cervical spine that showed multiple areas of foraminal stenosis including severe foraminal stenosis of the exiting C6 nerve root on the right side as the likely cause of your pain. Please follow up with your primary care provider as you might benefit from physical therapy with stretching or if ongoing pain management referral for injections. Your gabapentin and amitriptyline should also help with this type of pain and recommend continuing these. You were also noticed to have mild anemia. Further workup for this revealed a mildly low iron levels and B12 level <400 therefore recommend supplementation for this as prescribed. Please make sure you are up to date with colon cancer screening with your primary care provider. Pending Studies at Discharge: No Stand-Alone Forms: My [employer], Smoking Cessation Medications and DC Order Prescriptions: New ferrous sulfate 325 mg (65 mg iron) tablet 325 mg PO Q OTHER DAY Qty: 30 0RF cyanocobalamin (vitamin B-12) 500 mcg tablet 500 mcg PO DAILY Qty: 30 0RF Continued cyclobenzaprine 10 mg tablet 10 mg PO DAILY PRN (Reason: Muscle Spasm) amitriptyline 25 mg tablet 25 mg PO HS tamsulosin 0.4 mg capsule 0.8 mg PO HS gabapentin 800 mg tablet 800 mg PO TID ergocalciferol (vitamin D2) 1,250 mcg (50,000 unit) capsule 1,250 mcg PO WK hydroxyzine HCl 10 mg tablet 10 mg PO HS buspirone 15 mg tablet 15 mg PO TID escitalopram oxalate 20 mg tablet 20 mg PO DAILY omeprazole 40 mg capsule,delayed release(DR/EC) 40 mg PO DAILY tramadol 50 mg tablet 50 mg PO HS atorvastatin 40 mg tablet 40 mg PO HS Discontinued lisinopril 20 mg tablet 20 mg PO DAILY metoprolol tartrate 25 mg tablet 25 mg PO BID Discharge Orders: Discharge Order (Routine); Ordered 03/29/25 Ordered By: Jordan Ashton/Other Patient Handouts: Cervical Radiculopathy Admission Data Admit Date/Time: 03/28/25 11:39 Attending Provider: Jordan Rivera Admit Provider: Jordan Rivera Primary Care Provider: Rich Santoyo Other Interventions: Discharge Summary Assessment (RN) Last Done: 03/29/25 12:05 Hospital Stay Data Diagnostic Imagining Performed 03/28/25 08:36 CT abd pelvis wo con Stat 03/28/25 16:27 MRI Cervical [MR cervical spine wo con] Routine Pending Results Patient Have Any Pending Studies at Discharge: No Discharge Instructions Given to Patient (Per Discharging Provider) You were observed at [facility] due to lightheadedness, elbow pain and neck pressure. You were diagnosed with acute kidney injury and low blood pressure due to anti-hypertensives. This resolved overnight with intravenous fluids (suggestive of dehydration) and holding your blood pressure medications. Your blood pressure has been stable overnight and you are now medically stable for discharge. Please follow up with your primary care provider on discharge for repeat kidney test (BMP). Creatinine improved from 2.48 on ad mission to 1.44. Urine analysis was reassuringly normal. Due to C6 distribution pain on your right side you underwent MRI cervical spine that showed multiple areas of foraminal stenosis including severe foraminal stenosis of the exiting C6 nerve root on the right side as the likely cause of your pain. Please follow up with your primary care provider as you might benefit from physical therapy with stretching or if ongoing pain management referral for injections. Your gabapentin and amitriptyline should also help with this type of pain and recommend continuing these. You were also noticed to have mild anemia. Further workup for this revealed a mildly low iron levels and B12 level <400 therefore recommend supplementation for this as prescribed. Please make sure you are up to date with colon cancer screening with your primary care provider. Total Time Total Time Spent Total Time Spent (In Minutes): 25 Total Time Includes: Examination of the Patient, Discharge Planning and Medication Reconciliation Coding Level of Care Code 47108 IN/OBS DISCH 30 MIN/LESS Diagnoses MARINA (acute kidney injury) N17.9 Hypotension I95.9 Elbow pain, right M25.521 Urinary frequency R35.0 Benign hypertension I10
[2025-03-30 11:17] LABS: Marijuana Quant, GCMS Urine 83 ng/mL (<5)
== END 2025-03-29 13:02 | disposition home or self-care (01) | DRG 684 ==
LOC: ED 07:14 → EDINP 11:39 → 3E 14:13
DX: M25.521 Pain in right elbow; M79.605 Pain in left leg; M54.50 Low back pain, unspecified; M79.604 Pain in right leg; M54.12 Radiculopathy, cervical region; Z79.899 Other long term (current) drug therapy; N18.9 Chronic kidney disease, unspecified; D51.9 Vitamin B12 deficiency anemia, unspecified; N17.9 Acute kidney failure, unspecified; I95.9 Hypotension, unspecified; K21.9 Gastro-esophageal reflux disease without esophagitis; G89.29 Other chronic pain; F32.A Depression, unspecified; R35.0 Frequency of micturition; I13.10 Hypertensive heart and chronic kidney disease without heart failure, with stage 1 through stage 4 chronic kidney disease, or unspecified chronic kidney disease; D50.9 Iron deficiency anemia, unspecified; Z79.891 Long term (current) use of opiate analgesic; M48.02 Spinal stenosis, cervical region